=== PATIENT | female | born 1980 | race Caucasian/White ===

== ENCOUNTER → 2020-07-31 | Outpatient (CLI) | payer BC, OTHER ==
[~2020-07-31] VITALS: Ht 157.5 cm; Wt 80.3 kg
[~2020-07-31] MED LIST: BENTYL 20MG TAB20 MG PO; FOLIC ACID 1 MG1 MG PO; MEDROL DOSEPAK 24 MG PO; METHOTREXATE T2.5 MG PO; PROAIR DIGIHAL90 MCG INH; PROTONIX40 MG PO; ROBAXIN-750750 MG PO; ZOFRAN ODT 4 MG4 MG PO; [UNRECOGNIZED DRUG - OTHER] IV
== END ==
LOC: OPSV 10:49
DX: M32.9 Systemic lupus erythematosus, unspecified (principal)
CPT/HCPCS: 96365; J0490; J7030

== ENCOUNTER → 2020-09-04 | Outpatient (CLI) | payer BC, OTHER ==
[~2020-09-04] VITALS: Ht 157.5 cm; Wt 80.3 kg
== END ==
LOC: OPSV 08:00
DX: M32.9 Systemic lupus erythematosus, unspecified (principal)
CPT/HCPCS: 96365; J0490; J7050

== ENCOUNTER 2020-11-06 10:29 | Emergency (ER) | payer BC, OTHER ==
[~2020-11-06 10:29] MED LIST changes: -MEDROL DOSEPAK 24 MG PO; -PROAIR DIGIHAL90 MCG INH
[2020-11-06 11:18] LABS: HEMOGLOBIN 12.5 gm/dl (12.3-15.3); RED BLOOD COUNT 4.58 M/UL (4.00-5.10); WHITE BLOOD COUNT 7.8 K/UL (4.5-11.0)
[2020-11-06 11:47] LABS: BUN/CREATININE RATIO 16 (0-10)
[2020-11-06] MEDS ORDERED: PROAIR DIGIHAL90 MCG INH (13:09)
[2020-11-06] MEDS ORDERED: MEDROL DOSEPAK 24 MG PO (13:09)
== END 2020-11-06 13:19 | disposition home or self-care (01) ==
LOC: ER1 10:29
DX: J45.909 Unspecified asthma, uncomplicated (principal); Z90.49 Acquired absence of other specified parts of digestive tract; Z90.89 Acquired absence of other organs; Z90.710 Acquired absence of both cervix and uterus
CPT/HCPCS: 71045; 80053; 82550; 82553; 83874; 84484; 84703; 85025; 85379; 93005; 99285

== ENCOUNTER → 2020-11-13 | Outpatient (CLI) | payer BC, OTHER ==
[~2020-11-13] VITALS: Ht 157.5 cm; Wt 80.3 kg
[~2020-11-13] MED LIST changes: +MEDROL DOSEPAK 24 MG PO; +PROAIR DIGIHAL90 MCG INH
== END ==
LOC: OPSV 07:52
DX: M32.9 Systemic lupus erythematosus, unspecified (principal)
CPT/HCPCS: 96365; J0490; J7030

== ENCOUNTER → 2021-01-03 | Outpatient (CLI) | payer BC ==
[~2021-01-03] VITALS: Ht 157.5 cm; Wt 80.3 kg
== END ==
LOC: OPSV 14:32
DX: M32.9 Systemic lupus erythematosus, unspecified (principal)
CPT/HCPCS: 96365; J0490; J7030

== ENCOUNTER → 2021-02-05 | Outpatient (CLI) | payer BC ==
[~2021-02-05] VITALS: Ht 157.5 cm; Wt 80.3 kg
== END ==
LOC: OPSV 09:00
DX: M32.9 Systemic lupus erythematosus, unspecified (principal)
CPT/HCPCS: 96365; J0490; J7030

== ENCOUNTER → 2021-03-05 | Outpatient (CLI) | payer BC ==
[~2021-03-05] VITALS: Ht 157.5 cm; Wt 80.3 kg
== END ==
LOC: OPSV 09:00
DX: M32.9 Systemic lupus erythematosus, unspecified (principal)
CPT/HCPCS: 96365; J0490; J7030

== ENCOUNTER → 2021-04-02 | Outpatient (CLI) | payer BC ==
[~2021-04-02] VITALS: Ht 157.5 cm; Wt 80.3 kg
== END ==
LOC: OPSV 09:00
DX: M32.9 Systemic lupus erythematosus, unspecified (principal); Z88.1 Allergy status to other antibiotic agents; Z88.2 Allergy status to sulfonamides
CPT/HCPCS: 96365; J0490; J7030

== ENCOUNTER → 2021-06-05 | Outpatient (CLI) | payer BC ==
[~2021-06-05] VITALS: Ht 160 cm; Wt 83.0 kg
[2021-06-05 12:37] LABS: RED BLOOD COUNT 4.74 M/UL (4.00-5.10); WHITE BLOOD COUNT 8.4 K/UL (4.5-11.0)
[2021-06-06 07:11] LABS: ALKALINE PHOSPHATASE, S 99 IU/L (44-121); ALT (SGPT) 24 IU/L (0-32); AST (SGOT) 19 IU/L (0-40); BILIRUBIN, TOTAL 0.3 mg/dL (0.0-1.2); BUN 18 mg/dL (6-24); BUN/CREATININE RATIO 24 (9-23); CALCIUM, SERUM 9.8 mg/dL (8.7-10.2); CARBON DIOXIDE, TOTAL 21 mmol/L (20-29); CHLORIDE, SERUM 103 mmol/L (96-106); CREATININE, SERUM 0.76 mg/dL (0.57-1.00); EGFR IF AFRICN AM 113 (>59); EGFR IF NONAFRICN AM 98 (>59); GLOBULIN, TOTAL 2.4 g/dL (1.5-4.5); GLUCOSE, SERUM 108 mg/dL (65-99); POTASSIUM, SERUM 4.6 mmol/L (3.5-5.2); PROTEIN, TOTAL, SERUM 7.2 g/dL (6.0-8.5); SODIUM, SERUM 139 mmol/L (134-144)
[2021-06-06 08:15] LABS: COMPLEMENT C3, SERUM 196 mg/dL (82-167); COMPLEMENT C4, SERUM 35 mg/dL (12-38)
[2021-06-09 17:11] LABS: DSDNA CRITHIDIA LUCILIAE IFA Negative (Negative)
== END ==
LOC: OPSV 11:42
PROVIDERS: Internal Medicine
DX: M32.9 Systemic lupus erythematosus, unspecified (principal)
CPT/HCPCS: 80053; 85025; 86160; 86162; 86255; 96365; J0490; J7030